=== PATIENT | male | born 1990 ===

== ENCOUNTER 2016-10-16 13:37 | Emergency (ER) | payer SELFPAY ==
[2016-10-16] MEDS ORDERED: Famotidine TAB* 20 MG PO ONE (13:53)
[2016-10-16] MEDS ORDERED: diPHENhydraMINE PO* 50 MG PO ONE (13:53)
[2016-10-16] MEDS ORDERED: methylPREDNISolone 125 MG* 2 ML VIAL IM ONE (13:53)
--- NOTE | 2016-10-16 14:30 | UC ---
Skin Complaint HPI - HPI Summary HPI Summary: AT 1PM WHILE ON POSTAL ROUNDS, WAS STUNG IN RIGHT LOWER AND UPPER EYELIDS BY SEVERAL BEES. NO SOB. NO CHANGES IN VISION. NO PAIN WITH EYE MOVEMENT.NO THROAT TIGHTENING OR LIP SWELLING; HOWEVER, RIGHT EYELIDS ARE SWOLLEN. - History of Current Complaint Chief Complaint: UCEye Time Seen by Provider: 10/16/16 13:42 Stated Complaint: BEE STINGS Hx Obtained From: Patient Onset/Duration: Sudden Onset, Lasting Hours, Still Present Skin Exposure Onset/Duration: Hours Ago Onset Severity: Mild Current Severity: Moderate Location: Discrete - RIGHT EYE LIDS, Face Aggravating: Touch Alleviating: Nothing Associated Signs & Symptoms: Positive: Rash, Tenderness. Negative: Fever, Cough , Chest Pain, Hoarseness, Throat Tightening, Syncope, Drainage Related History: Insect Bite/Sting, Possible Reaction to: Insect - Allergy/Home Medications Allergies/Adverse Reactions: Allergies Allergy/AdvReac Type Severity Reaction Status Date / Time No Known Allergies Allergy Verified 10/16/16 13:44 Review of Systems Constitutional: Negative Skin: Other - EDEMA OF RIGHT SUPERIOR AND INFERIOR EYELIDS Eyes: Other - EDEMA OF RIGHT SUPERIOR AND INFERIOR EYELIDS ENT: Negative Respiratory: Negative Cardiovascular: Negative Gastrointestinal: Negative Genitourinary: Negative Motor: Negative Neurovascular: Negative Musculoskeletal: Negative Neurological: Negative Psychological: Negative All Other Systems Reviewed And Are Negative: Yes PMH/Surg Hx/FS Hx/Imm Hx Previously Healthy: Yes - Surgical History Surgical History: None - Family History Known Family History: Negative: Respiratory Disease - Social History Occupation: Employed Full-time Lives: With Family Alcohol Use: Rare Substance Use Type: None Smoking Status (MU): Never Smoked Tobacco Physical Exam Triage Information Reviewed: Yes Appearance: Well-Appearing, No Pain Distress, Well-Nourished Vital Signs: Initial Vital Signs Temp 98.3 F 10/16/16 13:39 Pulse 53 10/16/16 13:39 Resp 16 10/16/16 13:39 BP 114/69 10/16/16 13:39 Pulse Ox 99 10/16/16 13:39 Vital Signs Reviewed: Yes Eyes: Positive: Other: - EDEMA OF RIGHT SUPERIOR AND INFERIOR EYELIDS ENT Exam: Normal ENT: Positive: Normal ENT inspection, Hearing grossly normal, Pharynx normal, TMs normal Dental Exam: Normal Neck exam: Normal Neck: Positive: Supple, Nontender, No Lymphadenopathy Respiratory Exam: Normal Respiratory: Positive: Chest non-tender, Lungs clear, Normal breath sounds, No respiratory distress, No accessory muscle use Cardiovascular Exam: Normal Cardiovascular: Positive: RRR, No Murmur, Pulses Normal Abdominal Exam: Normal Musculoskeletal Exam: Normal Musculoskeletal: Positive: Strength Intact, ROM Intact, No Edema Neurological Exam: Normal Psychological Exam: Normal Psychological: Positive: Normal Response To Family Skin Exam: Normal Course/Dx - Differential Diagnoses - Skin Complaint Differential Diagnoses: Allergic Reaction, Anaphylaxis, Angioedema, Cellulitis, Contact Dermatitis, Local Allergic Reaction - Diagnoses Provider Diagnoses: BEE STINGS; RIGHT SUPERIOR AND INFERIOR EYELIDS LOCAL ALLERGIC REACION Discharge - Discharge Plan Condition: Stable Disposition: HOME Prescriptions: predniSONE TAB* [Deltasone TAB*] 10 mg PO DAILY #28 tab Patient Education Materials: Insect Bite or Sting (ED) Forms: *Work Release Referrals: [facility] [Outside] No Primary Care Phys,NOPCP [Primary Care Provider] - Additional Instructions: Benadryl 25 mg AM, 50 mg at night. Pepcid 40mg Daily. Take these meds for 3 to 5 days, depending on symptoms. Images Head: 1 - EDEMA OF RIGHT SUPERIOR AND INFERIOR EYELIDS
== END 2016-10-16 14:30 | disposition home or self-care (01) ==
LOC: EDSEX 13:37 → UCEAST 13:37
DX: T63.441A Toxic effect of venom of bees, accidental (unintentional), initial encounter (principal); T78.40XA Allergy, unspecified, initial encounter; Y92.9 Unspecified place or not applicable
CPT/HCPCS: 96372; 99202; A9270-GY; G0463; J2930